=== PATIENT | female | born 1940 | race Two or more races ===

== ENCOUNTER 2019-07-09 06:21 | Emergency (ER) | payer OTHER ==
[~2019-07-09] VITALS: Ht 157.5 cm; Wt 62.1 kg
== END 2019-07-09 12:18 | disposition home or self-care (01) ==
LOC: ER 06:21
DX: B34.9 Viral infection, unspecified (principal)

== ENCOUNTER 2020-07-31 15:10 | Outpatient (CLI) | payer OTHER | END 2020-07-31 15:18 | disposition home or self-care (01) | LOC: RAD 15:10 | DX: I10 Essential (primary) hypertension (principal) ==

== ENCOUNTER 2021-02-09 13:06 | Outpatient (CLI) | payer OTHER | END 2021-02-09 13:15 | disposition home or self-care (01) | LOC: RAD 13:06 | PROVIDERS: ATTEND Internal Medicine | DX: M17.0 Bilateral primary osteoarthritis of knee (principal) ==

== ENCOUNTER 2021-03-03 12:50 | Outpatient (CLI) | payer OTHER | END 2021-03-03 12:51 | disposition home or self-care (01) | LOC: NUCLEAR 12:50 | PROVIDERS: ATTEND Orthopaedic Surgery | DX: M81.0 Age-related osteoporosis without current pathological fracture (principal) ==

== ENCOUNTER → 2021-03-10 | Outpatient (CLI) | payer OTHER | END | disposition home or self-care (01) | LOC: MRI 13:45 | PROVIDERS: ATTEND Orthopaedic Surgery | DX: M17.11 Unilateral primary osteoarthritis, right knee (principal); M71.21 Synovial cyst of popliteal space [Baker], right knee; M25.461 Effusion, right knee | CPT/HCPCS: 73721 ==

== ENCOUNTER 2021-04-03 06:58 | Outpatient (CLI) | payer OTHER | END 2021-04-03 07:06 | disposition home or self-care (01) | LOC: LAB 06:58 | PROVIDERS: ATTEND Orthopaedic Surgery | DX: E83.42 Hypomagnesemia (principal); M81.8 Other osteoporosis without current pathological fracture; E88.89 Other specified metabolic disorders; M85.9 Disorder of bone density and structure, unspecified; E56.1 Deficiency of vitamin K ==

== ENCOUNTER → 2021-04-07 | Emergency (ER) | payer OTHER ==
[~2021-04-07] VITALS: Ht 157.5 cm; Wt 69.9 kg
== END | disposition home or self-care (01) ==
LOC: ER 15:54
DX: S00.83XA Contusion of other part of head, initial encounter (principal); W18.39XA Other fall on same level, initial encounter; Y93.89 Activity, other specified; Y92.098 Other place in other non-institutional residence as the place of occurrence of the external cause; Y99.8 Other external cause status; R00.2 Palpitations

== ENCOUNTER → 2021-06-05 | Outpatient (CLI) | payer OTHER | END | disposition home or self-care (01) | LOC: RAD 14:12 | PROVIDERS: ATTEND Specialist | DX: J45.998 Other asthma (principal) ==

== ENCOUNTER 2021-06-08 09:34 | Outpatient (CLI) | payer OTHER | END 2021-06-08 09:35 | disposition home or self-care (01) | LOC: LAB 09:34 | PROVIDERS: ATTEND Specialist | DX: E03.8 Other specified hypothyroidism (principal); E11.21 Type 2 diabetes mellitus with diabetic nephropathy; Z12.11 Encounter for screening for malignant neoplasm of colon; K75.81 Nonalcoholic steatohepatitis (NASH); N25.81 Secondary hyperparathyroidism of renal origin ==

== ENCOUNTER 2021-06-16 08:39 | Outpatient (CLI) | payer OTHER | END 2021-06-16 08:48 | disposition home or self-care (01) | LOC: LAB 08:39 | PROVIDERS: ATTEND Specialist | DX: E03.9 Hypothyroidism, unspecified (principal); E11.21 Type 2 diabetes mellitus with diabetic nephropathy; N39.9 Disorder of urinary system, unspecified; D64.9 Anemia, unspecified; J45.998 Other asthma; N39.0 Urinary tract infection, site not specified ==

== ENCOUNTER 2021-07-15 08:58 | Outpatient (CLI) | payer OTHER | END 2021-07-15 09:00 | disposition home or self-care (01) | LOC: LAB 08:58 | PROVIDERS: ATTEND Orthopaedic Surgery | DX: D64.9 Anemia, unspecified (principal); E88.9 Metabolic disorder, unspecified; D68.8 Other specified coagulation defects; N39.0 Urinary tract infection, site not specified; B95.62 Methicillin resistant Staphylococcus aureus infection as the cause of diseases classified elsewhere; E11.65 Type 2 diabetes mellitus with hyperglycemia; Z76.89 Persons encountering health services in other specified circumstances; I10 Essential (primary) hypertension ==

== ENCOUNTER 2021-11-03 00:32 | Emergency (ER) | payer OTHER ==
[~2021-11-03] VITALS: Ht 152.4 cm; Wt 63.5 kg
[2021-11-03] MEDS ORDERED: LOSARTAN POTASS50 MG (00:50)
[2021-11-03] MEDS ORDERED: FOSAMAX70 MG (00:50)
[2021-11-03] MEDS ORDERED: ULTRAM50 MG (00:50)
== END 2021-11-03 15:22 | disposition home or self-care (01) ==
LOC: ER 00:32
DX: I26.99 Other pulmonary embolism without acute cor pulmonale (principal); R07.89 Other chest pain; A41.9 Sepsis, unspecified organism; R06.02 Shortness of breath; Z20.822 Contact with and (suspected) exposure to COVID-19; I10 Essential (primary) hypertension

== ENCOUNTER 2021-11-26 07:43 | Outpatient (CLI) | payer OTHER ==
[~2021-11-26 07:43] MED LIST: FOSAMAX70 MG; LOSARTAN POTASS50 MG; ULTRAM50 MG
== END 2021-11-26 08:42 | disposition home or self-care (01) ==
LOC: LAB 07:43
PROVIDERS: ATTEND Specialist
DX: E03.9 Hypothyroidism, unspecified (principal); D64.9 Anemia, unspecified; E11.65 Type 2 diabetes mellitus with hyperglycemia; I80.299 Phlebitis and thrombophlebitis of other deep vessels of unspecified lower extremity

== ENCOUNTER 2021-12-29 14:13 | Outpatient (CLI) | payer OTHER | END 2021-12-29 14:21 | disposition home or self-care (01) | LOC: RAD 14:13 | DX: R06.09 Other forms of dyspnea (principal) ==

== ENCOUNTER 2022-04-23 08:44 | Outpatient (CLI) | payer OTHER ==
[~2022-04-23 08:44] MED LIST changes: +VOLTAREN ARTHRI20 GM TOP
== END 2022-04-23 08:48 | disposition home or self-care (01) ==
LOC: NUCLEAR 08:44
PROVIDERS: ATTEND Internal Medicine
DX: I82.403 Acute embolism and thrombosis of unspecified deep veins of lower extremity, bilateral (principal)
CPT/HCPCS: 78580; A9540

== ENCOUNTER 2022-04-28 11:33 | Outpatient (CLI) | payer OTHER | END 2022-04-28 11:34 | disposition home or self-care (01) | LOC: NUCLEAR 11:33 | PROVIDERS: ATTEND Internal Medicine | DX: I82.403 Acute embolism and thrombosis of unspecified deep veins of lower extremity, bilateral (principal) ==

== ENCOUNTER 2022-06-04 11:20 | Outpatient (CLI) | payer OTHER | END 2022-06-04 11:21 | disposition home or self-care (01) | LOC: LAB 11:20 | PROVIDERS: ATTEND Specialist | DX: E03.9 Hypothyroidism, unspecified (principal); E11.21 Type 2 diabetes mellitus with diabetic nephropathy; N39.9 Disorder of urinary system, unspecified; E78.2 Mixed hyperlipidemia; D64.9 Anemia, unspecified; D68.8 Other specified coagulation defects; K75.81 Nonalcoholic steatohepatitis (NASH); N39.0 Urinary tract infection, site not specified; I26.94 Multiple subsegmental thrombotic pulmonary emboli without acute cor pulmonale ==

== ENCOUNTER 2022-06-04 12:02 | Outpatient (CLI) | payer OTHER | END 2022-06-04 12:08 | disposition home or self-care (01) | LOC: SONOGRAMA 12:02 | PROVIDERS: ATTEND Specialist | DX: N39.0 Urinary tract infection, site not specified (principal); N18.32 Chronic kidney disease, stage 3b ==

== ENCOUNTER 2022-06-20 14:58 | Emergency (ER) | payer OTHER ==
[~2022-06-20] VITALS: Ht 162.6 cm; Wt 45.4 kg
[2022-06-20] MEDS ORDERED: LEVOFLOXACIN250 MG PO (15:07)
== END 2022-06-20 18:49 | disposition home or self-care (01) ==
LOC: ER 14:58
DX: M54.9 Dorsalgia, unspecified (principal); R42 Dizziness and giddiness

== ENCOUNTER 2022-06-22 08:31 | Outpatient (CLI) | payer OTHER ==
[~2022-06-22 08:31] MED LIST changes: +LEVOFLOXACIN250 MG PO
== END 2022-06-22 08:39 | disposition home or self-care (01) ==
LOC: LAB 08:31
DX: N39.0 Urinary tract infection, site not specified (principal); R30.0 Dysuria

== ENCOUNTER 2022-06-23 14:29 | Outpatient (CLI) | payer OTHER | END 2022-06-23 14:39 | disposition home or self-care (01) | LOC: TOM 14:29 | PROVIDERS: ATTEND Specialist | DX: I63.89 Other cerebral infarction (principal) ==

== ENCOUNTER 2022-06-24 06:59 | Outpatient (CLI) | payer OTHER | END 2022-06-24 07:01 | disposition home or self-care (01) | LOC: NUCLEAR 06:59 | PROVIDERS: ATTEND Specialist | DX: I65.29 Occlusion and stenosis of unspecified carotid artery (principal) ==

== ENCOUNTER 2022-07-14 10:39 | Outpatient (CLI) | payer OTHER | END 2022-07-14 10:40 | disposition home or self-care (01) | LOC: LAB 10:39 | PROVIDERS: ATTEND Internal Medicine | DX: E78.2 Mixed hyperlipidemia (principal); E11.9 Type 2 diabetes mellitus without complications; M31.6 Other giant cell arteritis ==

== ENCOUNTER 2022-08-23 09:16 | Outpatient (CLI) | payer OTHER | END 2022-08-23 09:22 | disposition home or self-care (01) | LOC: LAB 09:16 | PROVIDERS: ATTEND Specialist | DX: E03.8 Other specified hypothyroidism (principal); Z13.220 Encounter for screening for lipoid disorders; D64.89 Other specified anemias; E11.69 Type 2 diabetes mellitus with other specified complication; E11.21 Type 2 diabetes mellitus with diabetic nephropathy; N39.9 Disorder of urinary system, unspecified; I70.0 Atherosclerosis of aorta ==

== ENCOUNTER 2022-09-02 13:45 | Outpatient (CLI) | payer OTHER | END 2022-09-02 14:16 | disposition home or self-care (01) | LOC: SONOGRAMA 13:45 | PROVIDERS: ATTEND Specialist | DX: N20.0 Calculus of kidney (principal); D30.00 Benign neoplasm of unspecified kidney ==

== ENCOUNTER 2022-09-02 15:18 | Outpatient (CLI) | payer OTHER | END 2022-09-02 15:24 | disposition home or self-care (01) | LOC: LAB 15:18 | PROVIDERS: ATTEND Specialist | DX: D64.9 Anemia, unspecified (principal); N39.9 Disorder of urinary system, unspecified ==

== ENCOUNTER 2022-10-19 10:01 | Outpatient (CLI) | payer OTHER | END 2022-10-19 10:02 | disposition home or self-care (01) | LOC: LAB 10:01 | PROVIDERS: ATTEND Internal Medicine | DX: E78.2 Mixed hyperlipidemia (principal); R55 Syncope and collapse; I31.39 Other pericardial effusion (noninflammatory) ==

== ENCOUNTER 2022-11-22 08:53 | Outpatient (CLI) | payer OTHER | END 2022-11-22 08:56 | disposition home or self-care (01) | LOC: LAB 08:53 | PROVIDERS: ATTEND Internal Medicine | DX: N39.9 Disorder of urinary system, unspecified (principal); E03.8 Other specified hypothyroidism; N25.81 Secondary hyperparathyroidism of renal origin; E11.69 Type 2 diabetes mellitus with other specified complication; Z13.220 Encounter for screening for lipoid disorders; D64.89 Other specified anemias; E55.9 Vitamin D deficiency, unspecified; M00.80 Arthritis due to other bacteria, unspecified joint ==